=== PATIENT | male | born 1965 | race Caucasian/White ===

== ENCOUNTER 2018-09-12 06:25 | Day surgery (SDC) | payer MEDICAID ==
[2018-09-05 16:12] LABS: BASOPHILS % (AUTO) 0.5 % (0-1); EOSINOPHILS # (AUTO) 0.1 X10'3 (0-0.9); LYMPHOCYTES # (AUTO) 1.7 X10'3 (1.1-4.8); LYMPHOCYTES % (AUTO) 22.1 % (21-51); MEAN CORPUSCULAR HEMOGLOBIN 29.4 PG (27.0-31.0); MEAN CORPUSCULAR HGB CONC 32.8 % (33.0-36.5); MEAN CORPUSCULAR VOLUME 89.4 FL (78-98); MEAN PLATELET VOLUME 8.3 FL (7.4-10.4); MONOCYTES # (AUTO) 0.6 X10'3 (0-0.9); MONOCYTES % (AUTO) 7.9 % (2-12); NEUTROPHILS # (AUTO) 5.2 X10'3 (1.8-7.7); NEUTROPHILS % (AUTO) 68.5 % (42-75); PRE OP HEMATOCRIT 47.1 % (42.0-52.0); PRE OP HEMOGLOBIN 15.4 g/dL (14.0-17.9); PRE OP PLATELET COUNT 272 X10'3 (140-440); RED BLOOD COUNT 5.26 X10'6 (4.70-6.10); RED CELL DISTRIBUTION WIDTH 12.8 % (11.5-14.5)
[2018-09-05 16:32] LABS: ALBUMIN 3.7 G/DL (3.4-5.0); ALBUMIN/GLOBULIN RATIO 1.1 (1.1-1.5); ALKALINE PHOSPHATASE 85 IU/L (46-116); BLOOD UREA NITROGEN 17 MG/DL (7-18); BUN/CREATININE RATIO 24.3 (5.4-32.0); CALCIUM 8.8 MG/DL (8.5-10.1); CHLORIDE 102 MMOL/L (99-107); PRE OP ALT 38 U/L (30-65); PRE OP ANION GAP 9 (8-16); PRE OP AST 14 U/L (10-37); PRE OP BILIRUB, TOTAL 0.2 MG/DL (0.0-1.0); PRE OP GLUCOSE 114 MG/DL (70-104); PRE OP POTASSIUM 4.4 MMOL/L (3.4-5.1); PRE OP SODIUM 137 MMOL/L (135-145); TOTAL CARBON DIOXIDE 25.8 MMOL/L (24-32); TOTAL PROTEIN 7.2 G/DL (6.4-8.2); eGFR > 90 ML/MIN
[~2018-09-12] VITALS: Ht 157.5 cm; Wt 67.3 kg
[2018-09-12] VITALS (7 sets, daily range): BP systolic 100–114; BP diastolic 68–82
[~2018-09-12 06:25] MED LIST: NO HOME MEDS; ceFAZolin 1GM/D5W- ADD-VANTAGE 50 ML IV ONE; famotidine 20mg tablet PO ONE; ringers solution, lacted 1,000 ML IV SCH
[2018-09-12] MEDS ORDERED: LIDOcaine 0.5% (5mg/ml) 50ml vial ONE (08:24)
[2018-09-12] MEDS ORDERED: ringers solution, lacted 1,000 ML IV SCH (08:49)
[2018-09-12] MEDS ORDERED: proCHLORperazine 10 MG/2 ml inj IV PRN (08:50)
[2018-09-12] MEDS ORDERED: ondansetron/PF 4mg/2ml inj IV PRN (08:50)
[2018-09-12] MEDS ORDERED: meperidine/PF 25mg/ml syringe IV PRN ×3 (08:50)
[2018-09-12] MEDS ORDERED: morphine 4 MG/ML inj SYRINge IV PRN ×2 (08:50)
[2018-09-12] MEDS ORDERED: midazolam 2 mg/2 ml injection ONE (08:53)
[2018-09-12] MEDS ORDERED: fentaNYL/PF 50MCG/1 ML 2ML syringe ONE ×2 (08:53→09:42)
[2018-09-12] MEDS ORDERED: BUPIVAcaine/PF 2.5mg/ml (0.25%) 10ml vial ONE (09:14)
--- NOTE | 2018-09-12 10:03 | NUR ---
ARRIVED IN PACU VIA GURNEY FROM OR WITH DR SUAREZ IN ATTENDANCE. REPORT RECEIVED. PT SLEEPY. VS STABLE, RUE ELEVATED AND ICE APPLIED.
--- NOTE | 2018-09-12 10:33 | NUR ---
COMFORTABLE. SITTING UP DRINKING WATER
--- NOTE | 2018-09-12 11:20 | NUR ---
PT WAITING FOR HIS RIDE.
--- NOTE | 2018-09-12 11:33 | NUR ---
RIDE HERE. REVIEWED DISCHARGE. TO CAR VIA W/C ASSISTED BY VOLUNTEER
--- NOTE | 2018-09-12 11:45 | NUR ---
PT STATES HE HAS A SCRIPT TO FILL Addendum: 09/12/18 at 1146 by Arianna Watts RN Amended: Links added.
== END 2018-09-12 11:33 | disposition home or self-care (01) ==
LOC: PAS 06:25
PROVIDERS: ATTEND Orthopaedic Surgery Hand Surgery
DX: G56.01 Carpal tunnel syndrome, right upper limb (principal); G56.21 Lesion of ulnar nerve, right upper limb; F17.210 Nicotine dependence, cigarettes, uncomplicated; Z79.891 Long term (current) use of opiate analgesic; Z72.89 Other problems related to lifestyle; Z79.899 Other long term (current) drug therapy
CPT/HCPCS: 29848; 36415; 64718; 80053; 85025; 93005; A6449; J0690; J2001; J2250; J3010; J3490; A7000; J7120

== ENCOUNTER 2018-10-10 07:03 | Day surgery (SDC) | payer MEDICAID ==
[2018-10-10] VITALS (9 sets, daily range): BP systolic 102–116; BP diastolic 58–76
[~2018-10-10] VITALS: Ht 157.5 cm; Wt 66.3 kg
[2018-10-10] MEDS ORDERED: LIDOcaine 0.5% (5mg/ml) 50ml vial ONE (07:20)
[2018-10-10] MEDS ORDERED: ringers solution, lacted 1,000 ML IV SCH (07:36)
[2018-10-10] MEDS ORDERED: ondansetron/PF 4mg/2ml inj IV PRN (07:40)
[2018-10-10] MEDS ORDERED: hydrALAZINE 20mg/ml inj. IV PRN (07:40)
[2018-10-10] MEDS ORDERED: morphine 4 MG/ML inj SYRINge IV PRN ×2 (07:40)
[2018-10-10] MEDS ORDERED: fentaNYL/PF 50MCG/1 ML 2ML syringe IV PRN ×2 (07:40)
[2018-10-10] MEDS ORDERED: labetalol 20mg/4ml (5mg/ml) syringe IV PRN (07:40)
[2018-10-10] MEDS ORDERED: ondansetron/PF 4mg/2ml inj IV ONE (08:45)
[2018-10-10 08:49] LABS: BASOPHILS # (AUTO) 0.1 X10'3 (0-0.2); BASOPHILS % (AUTO) 0.8 % (0-1); EOSINOPHILS # (AUTO) 0.1 X10'3 (0-0.9); EOSINOPHILS % (AUTO) 1.1 % (0-6); HEMATOCRIT 45.1 % (42.0-52.0); HEMOGLOBIN 14.8 g/dl (14.0-17.9); LYMPHOCYTES # (AUTO) 1.2 X10'3 (1.1-4.8); LYMPHOCYTES % (AUTO) 15.3 % (21-51); MEAN CORPUSCULAR HEMOGLOBIN 29.6 PG (27.0-31.0); MEAN CORPUSCULAR HGB CONC 32.7 g/dL (33.0-36.5); MEAN CORPUSCULAR VOLUME 90.3 FL (78-98); MEAN PLATELET VOLUME 7.9 FL (7.4-10.4); MONOCYTES # (AUTO) 0.6 X10'3 (0-0.9); MONOCYTES % (AUTO) 7.3 % (2-12); NEUTROPHILS % (AUTO) 75.5 % (42-75); PLATELET COUNT 251 X10'3 (140-440); RED CELL DISTRIBUTION WIDTH 12.3 % (11.5-14.5)
[2018-10-10 09:09] LABS: ALBUMIN 3.5 G/DL (3.4-5.0); ALKALINE PHOSPHATASE 76 IU/L (46-116); BLOOD UREA NITROGEN 15 MG/DL (7-18); BUN/CREATININE RATIO 19.5 (5.4-32.0); CALCIUM 8.8 MG/DL (8.5-10.1); CHLORIDE 105 MMOL/L (99-107); CREATININE 0.77 MG/DL (0.60-1.10); PRE OP ALT 23 U/L (30-65); PRE OP ANION GAP 10 (8-16); PRE OP AST 13 U/L (10-37); PRE OP BILIRUB, TOTAL 0.4 MG/DL (0.0-1.0); PRE OP GLUCOSE 92 MG/DL (70-104); PRE OP POTASSIUM 4.1 MMOL/L (3.4-5.1); PRE OP SODIUM 139 MMOL/L (135-145); TOTAL CARBON DIOXIDE 24.5 MMOL/L (24-32); eGFR > 90 ML/MIN
[2018-10-10] MEDS ORDERED: BUPIVAcaine/PF 2.5mg/ml (0.25%) 10ml vial ONE ×2 (10:52→10:53)
[2018-10-10] MEDS ORDERED: MIDAZolam 5mg/5ml vial ONE (11:11)
[2018-10-10] MEDS ORDERED: fentaNYL/PF 50MCG/1 ML 2ML syringe ONE (11:11)
--- NOTE | 2018-10-10 11:40 | NUR ---
Received from OR via SERGIO , accompanied by Anesthesiologist MARCELLE and report given by Anesthesiolgist. PATIENT WITH 20G PIV IN RIGHT UE RUNNING LR AT 100. PATIENT WITH МАРИНА BANDAGES TO LEFT ELBOW AND WRIST. BOTH ARE CDI. + CAP REFILL. PWD. VSS AT THIS TIME. 10L MASK ON WITH 98% SATURATIONS. Addendum: 10/10/18 at 1149 by Phillip Reynolds RN, RN Amended: Links added.
--- NOTE | 2018-10-10 12:50 | NUR ---
ALL DC CRITERIA HAS BEEN MET. IV TAKEN OUT WITHOUT COMPLICATIONS. ALL INSTRUCTIONS COVERED AND ALL QUESTIONS ANSWERED. DRESSINGS CDI. OUT VIA WHEELCHAIR TO PERSONAL VEHICLE WHERE PATIENT WAS SECURED IN AND DRIVEN HOME BY FAMILY. Addendum: 10/10/18 at 1254 by Phillip Reynolds RN, RN Amended: Links added.
== END 2018-10-10 12:50 | disposition home or self-care (01) ==
LOC: PAS 07:03
PROVIDERS: ATTEND Orthopaedic Surgery Hand Surgery
DX: G56.03 Carpal tunnel syndrome, bilateral upper limbs (principal); G56.23 Lesion of ulnar nerve, bilateral upper limbs; F17.210 Nicotine dependence, cigarettes, uncomplicated; F17.200 Nicotine dependence, unspecified, uncomplicated; Z72.89 Other problems related to lifestyle; Z79.899 Other long term (current) drug therapy
CPT/HCPCS: 29848; 36415; 64718; 80053; 85025; A6449; J0690; J2001; J2250; J2405; J3010; J3490; A7000; J7120